=== PATIENT | female | born 1970 | race Caucasian/White ===

== ENCOUNTER → 2016-08-16 | Outpatient (CLI) | payer OTHER ==
[~2016-08-16] VITALS: Ht 175.3 cm; Wt 78.0 kg
[~2016-08-16] MED LIST: ACTEMRA200 MG/10 IV; ANTIVERT25 MG PO; ARAVA10 MG PO; ARAVA20 MG PO; BUPROPION HCL150 M1 PO; CALCIUM 500 +1 EAC5 PO; CALCIUM 600 +1 EAC1 PO; CELEXA 20 MG TA20 M1 PO; CYCLOBENZAPRINE10 MG PO; CYCLOBENZAPRINE5 MG PO; DEPAKOTE ER500 MG PO; FOLIC ACID0.8 MG PO; LEVOTHYROXIN0.112 M1 PO; LYRICA 50 MG50 MG PO; LYRICA 75 MG CA75 MG PO; MAXALT MLT ODT10 M1 PO; METHOTREXA250 MG/10 OR; NABUMETONE 750750 M1 PO; NORCO 5-325 TA1 EACH PO; PATADAY2.5 ML OP; PREDNISONE 10 M10 M1 PO; PRILOSEC 20 MG20 MG PO; PROBIOTIC1 EAC1 PO; PROPRANOLOL 1010 MG PO; RHEUMATREX2.5 MG PO; SIMPONI AR50 MG/4 ML IV; SYMBICORT160 MCG/4. INH; TOPAMAX 100 MG100 MG PO; TOPAMAX50 MG PO; VENTOLIN HFA 1818 GM INH; VITAMIN D-32000 UNIT PO; ZOCOR 20 MG TAB20 M1 PO
--- NOTE | ~2016-08-16 | HPC ---
[facility] [place] [address] PAIN MANAGEMENT CONSULTATION Name: ISABEL SANTOSEMELI Room #: REG MAURICE Hernandez#: [id number] Admission: 08/16/16 Attend Phys: Jamar Madison MD Discharge: Date of : 70 Report #: [id number] THIS REPORT FOR: //name// CC: Elgin Madison DATE OF REGISTRATION: 08/16/2016 Followup visit for low back pain with radiculopathy. The patient presents today with new sets of pain. She has pain across her low back radiating down into her leg as far as the calf. She describes it as a pain over 5/10, burning, aching, shooting and spasmodic. Pain began in early July, has worsened over the course of the last month. She describes the pain radiating as far as her foot. She has mild left-sided pain as well. The patient has been treated successfully in the past with an epidural and has also been treated for cervicalgia with radiculopathy. She has number of comorbidities, they include psoriasis, plantar fasciitis, peripheral neuropathy, osteopenia, hyperlipidemia, history of migraine headaches. PAST SURGICAL HISTORY: Includes hysterectomy, lumpectomies, history of kidney stone extraction. SOCIAL HISTORY: The patient continued to smoke a half a pack of cigarettes a day. She lives in a house with 6 adults and 9 animals. She has been because of her psoriatic arthritis and is on social security disability. REVIEW OF SYSTEMS: Is positive for weight gain, fever, night sweats, fatigue and weakness, irritable bowel syndrome with abdominal pain. She complains of a psoriatic rash with itching, heat and cold intolerance, frequent urination, nocturia, sexual difficulties, chronic headaches, dizziness, lightheadedness, tremors, nervousness, depression and insomnia. MEDICATIONS: Antivert, Maxalt, bupropion, Relafen 750 b.i.d., probiotic, Lyrica 75 mg b.i.d., cyclobenzaprine h.s., Simponi Aria intravenous once weekly. PHYSICAL EXAMINATION: VITAL SIGNS: Blood pressure 151/83, heart rate in the 89, height is 5 feet 9 inches, weight 172. BMI 25.4. NECK: Is supple. CHEST: Clear. CARDIAC: Rhythm regular. ABDOMEN: Soft. MUSCULOSKELETAL: Back is tender with some decreased range of motion. [facility] [address] [place] [address] PAIN MANAGEMENT CONSULTATION Name: EMELI CHILDS Room #: REG MAURICE Hernandez#: [id number] Admission: 08/16/16 Attend Phys: Jamar Madison MD Discharge: Date of : 70 Report #: [id number] EXTREMITIES: She walks with antalgic features. She has positive straight leg raising on the left, reproducing pain into the left hip and down into the calf and the ankle. IMPRESSION: 1. Low back pain with radiculopathy. 2. Psoriatic arthritis. 3. Gastroesophageal reflux disease. 4. History of depression. RECOMMENDATIONS: Epidural injection under fluoroscopic guidance, L5-S1. She was taken to the fluoroscopic suite for treatment and placed prone, skin prepped with ChloraPrep. Skin anesthetized over L5-S1. A 20-gauge Tuohy epidural needle advanced in the epidural space with loss of resistance. There was no blood or CSF aspirated. A 1 mL of Omnipaque injected with spread of dye observed in the epidural space followed by 3 mL of 0.5% lidocaine mixed with 80 mg triamcinolone. She tolerated the procedure well and was observed for 45 minutes and discharged in good condition with a pain score of 2. Follow up as needed. <ELECTRONICALLY SIGNED> By: Jamar Madison MD 09/15/16 1130 1400 11 Jamar Madison MD /nt
[2016-08-16 10:26] VITALS: BP 151/83
== END ==
LOC: PAIN 07:16
DX: M54.12 Radiculopathy, cervical region (principal); E78.5 Hyperlipidemia, unspecified; L40.9 Psoriasis, unspecified; G43.909 Migraine, unspecified, not intractable, without status migrainosus; Z90.710 Acquired absence of both cervix and uterus; F17.210 Nicotine dependence, cigarettes, uncomplicated; K58.9 Irritable bowel syndrome, unspecified; K21.9 Gastro-esophageal reflux disease without esophagitis

== ENCOUNTER → 2016-12-03 | Outpatient (CLI) | payer OTHER ==
[~2016-12-03] VITALS: Ht 175.3 cm; Wt 82.0 kg
--- NOTE | ~2016-12-03 | HPC ---
[facility] [place] [address] PAIN MANAGEMENT CONSULTATION Name: ISABEL SANTOSEMELI KIRK Room #: REG MAURICE Hernandez#: [id number] Admission: 12/03/16 Attend Phys: Jamar Madison MD Discharge: Date of : 70 Report #: [id number] THIS REPORT FOR: //name// CC: Elgin Madison DATE OF SERVICE: 12/03/2016 Followup visit for cervical radiculopathy. The patient returns to the pain clinic today and complains that her neck is bothering her a lot. She is having increasing number of migraine headaches and she has what is considered radicular pain that radiates into both arms. She has diffuse cervical spondylosis which has been followed for some time. Her most recent MRI was in 2014, but even then it had showed increasing disk space narrowing, reactive changes at C5-C6 and C6-C7. This results in increasing neural foraminal narrowing at several levels. This was felt to be the underlying cause of her cervical radicular symptoms. She is reluctant at this time to pursue a surgical option. Pain today is worse on the right than left. She describes it as a burning, aching spasm sensation and her score at the time of exam is 6/10. MEDICATIONS: Reviewed and reconciled, meclizine, Maxalt, Wellbutrin, nabumetone, pregabalin, cyclobenzaprine, Simponi, methotrexate, calcium, simvastatin, folic acid, cholecalciferol, hydrocodone and levothyroxine. ALLERGIES: SULFA, KEFLEX, PERTUSSIS and REMICADE. PHYSICAL EXAMINATION: GENERAL: She is a pleasant 46-year-old. VITAL SIGNS: Blood pressure 131/71, heart rate 80, BMI is 26.7. EXTREMITIES: She has limited range of motion and extension, which causes pain as well as lateral tilt to the left, also reproducing pain in the left C6-C7 distribution. NEUROLOGIC: Strength is judged to be diminished bilaterally in a generalized fashion in the upper extremities. Sensation is intact. Deep tendon reflexes are normal, biceps, triceps and brachioradialis. Reflexes are tested in the lower extremities, there is no evidence of hyperreflexia. IMPRESSION: Cervical radiculopathy related to severe spondylosis of the cervical spine with narrowing of the neural foramina, a resulting radiculopathy. PROCEDURE: Cervical epidural injection under fluoroscopic guidance. [address] [address] PAIN MANAGEMENT CONSULTATION Name: EMELI CHILDS [facility] #: [facility] [id number] Admission: 12/03/16 Attend Phys: Jamar Madison MD Discharge: Date of : 70 Report #: [id number] PROCEDURE: She was taken to fluoroscopic suite for treatment, placed prone, skin prepped with ChloraPrep. Skin anesthetized over the C6-C7 interspace. A 20-gauge Tuohy epidural needle advanced at first attempt in the epidural space with loss of resistance. No blood or CSF aspirated. 1 mL of Omnipaque was injected with excellent spread of dye, observed in the epidural space followed by 3 mL of 0.5% lidocaine mixed with 80 mg of triamcinolone. She tolerated the procedure well and was observed for 45 minutes and discharged. Follow up as needed. By: [id number] Jamar Madison MD /nt
[2016-12-03 12:57] VITALS: BP 131/71
== END | disposition home or self-care (01) ==
LOC: PAIN 11:07
DX: M54.12 Radiculopathy, cervical region (principal); M47.812 Spondylosis without myelopathy or radiculopathy, cervical region

== ENCOUNTER → 2017-01-11 | Outpatient (CLI) | payer OTHER | LOC: MRI 07:16 | DX: M84.375A Stress fracture, left foot, initial encounter for fracture (principal); X58.XXXA Exposure to other specified factors, initial encounter; Y93.89 Activity, other specified; Y92.89 Other specified places as the place of occurrence of the external cause; Y99.8 Other external cause status ==

== ENCOUNTER → 2017-09-26 | Outpatient (CLI) | payer OTHER ==
[~2017-09-26] VITALS: Ht 175.3 cm; Wt 80.7 kg
--- NOTE | ~2017-09-26 | HPC ---
[facility] [place] [address] PAIN MANAGEMENT CONSULTATION Name: ISABEL SANTOSEMELI KIRK Room #: REG MAURICE Hernandez#: [id number] Admission: 09/26/17 Attend Phys: Jamar Madison MD Discharge: Date of : 70 Report #: [id number] THIS REPORT FOR: //name// CC: Elgin Madison DATE OF SERVICE: 09/26/2017 DATE OF REGISTRATION: 09/26/2017 Followup visit for cervical radiculopathy. The patient returns to pain clinic today and would like a cervical epidural injection. She has had injections performed, no more often than every 9 months or so. Her last injection was in December of 2015. She has been under a lot of pressure and doing a lot of work to help care for her parents. She also has a grandbaby. She also is under stress because her high school daughter just left the house. All of this is creating more and more pain, headaches. Pain is radiating from her neck down into her arms. It is chronic in nature. It is more intense today, scoring it as a 6/10. It is worsened with activities. Medical record is reviewed in all detail. MEDICATIONS: Reviewed. There are no blood thinning medications. She does take methotrexate 10 mg tablet once a week. She is also on Simponi Aria intravenous infusion, cyclobenzaprine, gabapentin and Lyrica. Maxalt is taken for the onset of headache. Bupropion for depression. She has a history of migraines, hyperhidrosis, hyperlipidemia, hyperthyroidism. She has Sicca syndrome and chronic myofascial pain. I am treating her for cervicalgia with radiculopathy. She is on Medicare disability. We reviewed her PQRS requirements. She has history of arthritis involving both upper and lower extremities. She keeps in shape. Her BMI is 26.3. She does do exercise. She has no significant habits, does not smoke or drink. She has no history of recreational drug use or addiction. Her pain intensity is 6/10 today and can be higher depending on activities. She has fallen in the last 3 months, but I would not consider her a fall risk. She is on no blood thinners. She is not hypertensive. She has been on opioids in the past, none currently. PHYSICAL EXAMINATION: She is a tall patient, 5 feet 9 inches, weight 178 with a [facility] [address] [place] [address] PAIN MANAGEMENT CONSULTATION Name: ISABEL GRAHAMEMELI Room #: REG [facility]#: [id number] Admission: 09/26/17 Attend Phys: Jamar Madison MD Discharge: Date of : 70 Report #: [id number] BMI of 26.3. Vital signs as noted above. Neck range of motion is adequate with increasing pain with neck extension that radiates into the arms and shoulders. Deep tendon reflexes bilaterally are present at biceps, triceps and brachioradialis. Deep tendon reflexes in lower extremities are 1+ with no evidence of hyperreflexia. Strength is adequate with no asymmetry in the upper extremities. Sensation intact. MRI from the past is reviewed, which once again shows that she has multilevel degenerative disease of the cervical spine with narrowing at C5-C6, C6-C7 resulting in neural foraminal narrowing at several levels. IMPRESSION: Cervical radiculopathy related to neural foraminal narrowing and degenerative changes. PROCEDURE: Recommendation of cervical epidural injection under fluoroscopic guidance. DESCRIPTION OF PROCEDURE: She was taken to fluoroscopic suite, placed prone, skin prepped with ChloraPrep. Skin anesthetized over C7-T1. A 20-gauge Tuohy epidural needle advanced on the first attempt into the epidural space with loss of resistance. No blood or CSF was aspirated. I then injected 1 mL of Omnipaque to demonstrate an excellent epidurogram followed by 80 mg of triamcinolone and 3 mL of 1% lidocaine. She tolerated the procedure well and was taken to recovery room for observation. A followup visit is planned as needed. <ELECTRONICALLY SIGNED> By: Jamar Madison MD 10/02/17 1640 1425 194 Jamar Madison MD /nt
[2017-09-26 13:55] VITALS: BP 145/86
== END ==
LOC: PAIN 07:09
DX: M54.12 Radiculopathy, cervical region (principal)

== ENCOUNTER → 2017-10-03 | Outpatient (CLI) | payer OTHER | LOC: CAT 08:55 | DX: R10.819 Abdominal tenderness, unspecified site (principal); R51 Headache ==

== ENCOUNTER → 2019-04-30 | Outpatient (CLI) | payer OTHER | LOC: MRI 10:24 | DX: M47.22 Other spondylosis with radiculopathy, cervical region (principal); M48.02 Spinal stenosis, cervical region; M25.78 Osteophyte, vertebrae; M50.10 Cervical disc disorder with radiculopathy, unspecified cervical region ==

== ENCOUNTER → 2019-07-13 | Outpatient (CLI) | payer OTHER ==
[~2019-07-13] VITALS: Ht 175.3 cm; Wt 82.1 kg
[~2019-07-13] MED LIST changes: +IMITREX100 MG PO; +PREDNISONE 5 MG5 MG PO
--- NOTE | ~2019-07-13 | HPC ---
[facility] [place] [address] PAIN MANAGEMENT CONSULTATION Name: ISABEL SANTOSEMELI KIRK Room #: REG MAURICE Hernandez#: [id number] Admission: 07/13/19 Attend Phys: Jamar Madison MD Discharge: Date of : 70 Report #: [id number] THIS REPORT FOR: //name// CC: Elgin Madison DATE OF SERVICE: 07/13/2019 Followup visit for cervical radiculopathy. The patient returns to pain clinic today complaining of severe pain in the neck radiating into both arms. The record will reflect that she has responded favorably to epidural injections in the cervical spine dating back many years. She received her first cervical epidural injection in this clinic in 2008. She has a new MRI performed on 04/30/2019. We reviewed the findings today. There are multiple levels of spondylosis and moderate thecal sac stenosis at C5-C6 and C6-C7 due to a broad-based posterior disk osteophyte formation. There is multilevel moderate to severe neural foraminal stenosis also at C4-C5, C5-C6. This is an advanced from her prior findings. She is being treated with oral steroids and also receives a monthly injection of Solu-Medrol. This has resulted in osteopenia. The pain is quite limiting for her. 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 Also living with her 2 disabled brothers. She carries much of the weight of keeping things going in the household. She is here today because the pain has become so intense that she describes it as a constant, 6/10, radiating from her neck down into both arms electric and aching. She would like another epidural injection. MEDICATIONS: Prednisone 5 mg daily, sumatriptan, meclizine, bupropion, Nabumetone, Lyrica 75 mg, cyclobenzaprine p.r.n. bedtime, Simponi, methotrexate, calcium carbonate, vitamin D3, Zocor, folic acid, vitamin D3, Carlisle 5/325 at bedtime and levothyroxine. ALLERGIES: KEFZOL, KEFLEX, SULFONAMIDES, PERTUSSIS, REMICADE, TOPAMAX. PHYSICAL EXAMINATION: GENERAL: She is a pleasant female, mildly depressed. VITAL SIGNS: Blood pressure 151/83, heart rate 77, respirations 18. She is 5 feet 9 inches, 181 pounds, BMI of 26.7. CHEST: Clear. CARDIAC: Rhythm is regular. [facility] [address] [place] [address] PAIN MANAGEMENT CONSULTATION Name: EMELI CHILDS Room #: REG [facility].#: [id number] Admission: 07/13/19 Attend Phys: Jamar Madison MD Discharge: Date of : 70 Report #: [id number] MUSCULOSKELETAL: Reveals pain with all range of motion of cervical spine, particularly with neck extension which causes pain throughout her neck radiating up into the occiput and pain radiating into her arms. Pain in her arms is mostly in the shoulders, but also radiating into the scapular and clavicular area on the left. She has good range of motion of the shoulder joints. There is no decrease in muscle mass. She has generalized weakness. She has pain with activation of the right biceps and triceps. [employer] strengths are adequate. Deep tendon reflexes are 2+ biceps, triceps, brachioradialis. Reflexes at the knee and ankle are also 1+ to 2+. There is no evidence of hyperreflexia to suggest myelopathy. Roberts's is negative. IMPRESSION: Chronic cervical radiculopathy. She has responded favorably to epidural injections. RECOMMENDATIONS: We will repeat epidural injection today at C7-T1. PROCEDURE: After informed consent, she was taken to fluoroscopic suite, placed prone, skin was prepped with ChloraPrep. Skin was anesthetized over the C7-T1 interspace and a 20-gauge Tuohy epidural needle advanced, first attempt into the epidural space with loss of resistance. There was no blood nor CSF aspirated. A 1 mL of Omnipaque was injected and excellent epidurogram was achieved. AP and lateral views were obtained and then injected a total of 3 mL of 0.5% lidocaine mixed with 40 mg of triamcinolone. Reduction of her normal dose of 80 due to her daily use of steroids. She tolerated the procedure well and was observed in recovery room for 45 minutes. There were no complications. Followup visit is planned on an as needed basis. We see her periodically. Her last injection was over a year ago. By: [id number] Jamar Madison MD /nt
[2019-07-13 14:55] VITALS: BP 151/83
--- NOTE | 2019-07-13 15:23 | NUR ---
Pain Clinic Assessment: 1. History of Osteoarthritis: LOW BACK KNEES History of Rheumatoid Arthritis: Left Lower Extremity Left Upper Extremity Right Lower Extremity Right Upper Extremity 2. Height: 5 ft. 9 in. 175.3 cm. Weight: 181.0 lb. oz. 82.101 kg. Patient's BMI: 26.7 3. Vital Signs: BP: 151/83 Pulse: 77 Resp: 18 Temp: 02 Sat: 97 ECG Mon: 4. Pain Intensity: 6 5. Fall Risk: Dizziness: N Needs help standing or walking: N Fallen in the last 3 months: N Fall risk comments: 6. Patient on Blood Thinner: None 7. History of Hypertension: N 8. Opioid Therapy greater than 6 weeks: Y Opiate Contract Signed: 9. Risk Assessment Tool Provided: MOD RISK-4 10. Functional Assessment Tool: 11. Recreational Drug Use: Never Drug Type: Tobacco Use: Current Every Day Smoker Tobacco Type: Cigarettes Amount or Packs/day: 1/3 PPD How Many Years: 35 Alcohol Use: Yes Frequency: Special Occasions Quant: 1-2
== END | disposition home or self-care (01) ==
LOC: PAIN 06:57
DX: M54.12 Radiculopathy, cervical region (principal); F17.210 Nicotine dependence, cigarettes, uncomplicated; Z79.899 Other long term (current) drug therapy; Z88.8 Allergy status to other drugs, medicaments and biological substances; Z88.2 Allergy status to sulfonamides

== ENCOUNTER → 2019-09-28 | Outpatient (CLI) | payer OTHER ==
[~2019-09-28] VITALS: Ht 175.3 cm; Wt 83.9 kg
[~2019-09-28] MED LIST changes: +COMPAZINE10 M2 PO; +ONDANSETRON HCL4 M2 PO; +PAMELOR25 MG PO; +PROTONIX40 M4 PO; +SUPER THERAVIT1 EACH PO; +VAGIFEM10 MCG VAG
[2019-09-28 11:11] VITALS: BP 131/76
--- NOTE | 2019-09-28 11:17 | NUR ---
Pain Clinic Assessment: 1. History of Osteoarthritis: LOW BACK KNEES History of Rheumatoid Arthritis: Left Lower Extremity Left Upper Extremity Right Lower Extremity Right Upper Extremity 2. Height: 5 ft. 9 in. 175.3 cm. Weight: 185.0 lb. oz. 83.916 kg. Patient's BMI: 27.3 3. Vital Signs: BP: 131/76 Pulse: 86 Resp: 16 Temp: 02 Sat: 99 ECG Mon: 4. Pain Intensity: 5 5. Fall Risk: Dizziness: N Needs help standing or walking: N Fallen in the last 3 months: N Fall risk comments: 6. Patient on Blood Thinner: None 7. History of Hypertension: N 8. Opioid Therapy greater than 6 weeks: Y Opiate Contract Signed: 9. Risk Assessment Tool Provided: MOD RISK-4 10. Functional Assessment Tool: 11. Recreational Drug Use: Never Drug Type: Tobacco Use: Current Every Day Smoker Tobacco Type: Cigarettes Amount or Packs/day: 6-7 CIGS/DAY How Many Years: 35 Alcohol Use: Yes Frequency: Special Occasions Quant: 1
--- NOTE | 2019-10-01 14:31 | HPC ---
[facility] [address] [place] [address] [place] [address] PAIN MANAGEMENT CONSULTATION Name: EMELI CHILDS Room #: REG MAURICE [facility].#: [id number] Admission: 09/28/19 Attend Phys: Jamar Madison MD Discharge: Date of : 70 Report #: [id number] THIS REPORT FOR: cc: Elgin Rios MD, Eric K. MD Morgan, Richard L. MD ~ THIS REPORT FOR: //name// CC: Elgin Madison DATE OF SERVICE: 09/28/2019 Followup visit for cervical radiculopathy. The patient returns to pain clinic today and is having ongoing symptoms. Most of her symptoms are on the left. She has responded favorably to epidural injections in the past. Her last injection was performed on 07/13/2019. She is here today because her pain is recurring. I reviewed her MRI once again and I do think it is time for her to see Dr. Varela or another neurosurgeon with consideration of an ACDF. She has multilevel moderate to severe disease with neural foraminal stenosis at C4-C5, C5-C6. There is also moderate to severe thecal sac stenosis at C6-C7 due to a broad-based disk. Given the only modest improvement in short lived results from the injection, I think that we need to look at some other options. 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 Pain today is reported as a 6/10. It radiates through the outer arm and into the C7-C8 distribution. PHYSICAL EXAMINATION: Reveals a positive Spurling's on the left. Strength is symmetrical, biceps, triceps and clinical auditor. She has no loss of sensation in the hand. Deep tendon reflexes are 1+ biceps, triceps, brachioradialis and she has normal reflexes of the lower extremities, slightly diminished, in fact. No evidence of hyperreflexia to suggest myelopathy. IMPRESSION: Cervical radiculopathy. Symptoms of pain are primarily in the lower cervical distribution. We will repeat the injection today and again as mentioned, we will refer her on to Dr. Varela for his assessment. PROCEDURE: After informed consent, she was taken to fluoroscopic suite, placed prone, skin prepped with ChloraPrep. Skin anesthetized over C6-C7 interspace and a 20-gauge Tuohy epidural needle advanced in first [place] [address] PAIN MANAGEMENT CONSULTATION Name: EMELI CHILDS [facility] [id number] Admission: 09/28/19 Attend Phys: Jamar Madison MD Discharge: Date of : 70 Report #: [id number] space with loss of resistance technique. There was no blood or CSF aspirated. A 1 mL of Omnipaque injected. Good spread of dye observed in the epidural space, was followed by 3 mL of 0.5% lidocaine mixed with 80 mg of triamcinolone. Much of the medication spread initially to the right, although she did have a sensation of medication going to both. There is stenosis there. I feel comfortable that we will be covering nerve roots on both sides. Needle was removed. She was taken to recovery room for 45 minutes and observed and discharged shortly thereafter. Follow up as needed. <ELECTRONICALLY SIGNED> By: Jamar Madison MD 10/01/19 1431 1301 Jamar Madison MD /nt
== END | disposition home or self-care (01) ==
LOC: PAIN 06:40
DX: M54.12 Radiculopathy, cervical region (principal); G89.29 Other chronic pain; F17.210 Nicotine dependence, cigarettes, uncomplicated; Z98.890 Other specified postprocedural states; Z79.899 Other long term (current) drug therapy; Z88.2 Allergy status to sulfonamides; Z88.8 Allergy status to other drugs, medicaments and biological substances